=== PATIENT | female | born 1990 | race Caucasian/White ===

== ENCOUNTER → 2016-11-13 08:50 | Outpatient (CLI) | payer MEDICAID ==
[~2016-11-13 08:50] MED LIST: HYDROCODON-ACE1 EAC7 PO; IBUPROFEN600 MG PO; LAMICTAL ODT200 MG PO; MACROBID100 MG PO; PRENATAL COMPLE1 TAB PO; PROTONIX40 MG PO
[2016-11-13 09:50] LABS: APPEARANCE CLOUDY (CLEAR); BACTERIA MODERATE /hpf (NONE SEEN); BILIRUBIN NEGATIVE (NEGATIVE); COLOR YELLOW (YELLOW); GLUCOSE NEGATIVE (NEGATIVE); KETONE NEGATIVE (NEGATIVE); LEUKOCYTE ESTERASE 1+ (NEGATIVE); NITRITE NEGATIVE (NEGATIVE); PROTEIN NEGATIVE (NEGATIVE); RED CELLS - URINE 0-5 /hpf (0-5); UROBILINOGEN NORMAL (NORMAL)
[2016-11-13 09:51] LABS: AMORPHOUS SEDIMENT <1+ /lpf (NONE SEEN); MUCUS <1+ /lpf (NONE SEEN)
--- NOTE | 2016-11-13 10:45 | NUR ---
PT WISHES TO SHOWER. IV [place] COVERED W/GLOVE.PT OOB W/OUT ASSISTANCE. DENIES DIZZINESS. AMBULATES TO SHOWER. PT'S GRANMOTHER TO ASSIST PT W/SHOWERING. EVS TO ROOM AT THIS TIME TO CLEAN AND REMOVE TRASH. BED LINENS CHANGED PER THIS RN. BATHING ITEMS PROVIDED. INFANT LYING QUIETLY IN CRIB AT BEDSIDE. PT DENIES FURTHER NEEDS AT THIS TIME.
[2017-01-24 06:11] VITALS: BMI 24.2
== END | disposition home or self-care (01) ==
LOC: D.LDO 08:50
PROVIDERS: Specialist
DX: Z34.83 Encounter for supervision of other normal pregnancy, third trimester (principal); Z3A.35 35 weeks gestation of pregnancy; N89.8 Other specified noninflammatory disorders of vagina; R10.9 Unspecified abdominal pain

== ENCOUNTER 2016-11-28 10:48 | Emergency (ER) | payer MEDICAID ==
[2016-11-28 15:45] LABS: BASOPHILS 0.1 % (0.0-2.0); EOSINOPHILS 0.1 % (0-7); HEMATOCRIT 34.9 % (36.0-48.0); HEMOGLOBIN 11.2 g/dL (12-16); IMMATURE GRANULOCYTES 0.2 % (0-5); LYMPHOCYTES 7.2 % (15-50); MCH 30.9 pg (26.0-34.0); MCHC 32.1 g/dL (31.0-37.0); MCV 96.4 fL (80.0-100.0); MEAN PLATELET VOLUME 10.6 fL (7.4-10.4); NEUTROPHILS 84.4 % (40-80); RBC 3.62 10x6/uL (4.00-5.40); RDW 14.9 % (11.5-14.5); WBC 12.7 10x3/uL (4.8-10.8)
[2016-11-28 15:46] LABS: PLATELET COUNT 162 10x3/uL (130-400)
[2016-11-28 16:04] LABS: ALBUMIN 2.7 g/dL (3.4-5.0); ALKALINE PHOSPHATASE 154 U/L (46-116); ALT (SGPT) 14 U/L (10-68); BILIRUBIN - TOTAL 0.38 mg/dL (0.2-1.3); CALC OSMOLALITY 272 mosm/kg (275-300); CALCIUM 8.5 mg/dL (8.5-10.1); CHLORIDE - SERUM 104 mmol/L (98-107); CREATININE - SERUM 0.5 mg/dL (0.6-1.3); POTASSIUM - SERUM 3.4 mmol/L (3.5-5.1); PROTEIN - SERUM 5.8 g/dL (6.4-8.2); SODIUM 139 mmol/L (136-145); UREA NITROGEN 4 mg/dL (7-18); eGFR NON AFRICAN AMERICAN > 90 mL/min (90-120)
[2016-11-28 16:10] LABS: GLUCOSE 66 mg/dL (74-106)
[2016-11-28 17:04] LABS: APPEARANCE HAZY (CLEAR); BILIRUBIN NEGATIVE (NEGATIVE); COLOR YELLOW (YELLOW); GLUCOSE NEGATIVE (NEGATIVE); KETONE MODERATE mg/dL (NEGATIVE); LEUKOCYTE ESTERASE 1+ (NEGATIVE); NITRITE NEGATIVE (NEGATIVE); PROTEIN NEGATIVE (NEGATIVE); UROBILINOGEN NORMAL (NORMAL)
[2016-11-28 17:05] LABS: BACTERIA MANY /hpf (NONE SEEN); EPITHELIAL CELLS 0-5 /hpf (0-5); RED CELLS - URINE 0-5 /hpf (0-5); WHITE CELLS - URINE 0-5 /hpf (0-5)
[2017-01-22] MEDS ORDERED: PRENATAL COMPLE1 TAB PO (14:12)
[2017-01-24 06:11] VITALS: BMI 24.2
== END 2016-11-28 18:15 | disposition home or self-care (01) ==
LOC: D.ER 10:48 → D.LDO 10:48 → EDSTATUS 12:00 → D.ER 18:15
PROVIDERS: Physician Assistant
DX: Z34.93 Encounter for supervision of normal pregnancy, unspecified, third trimester (principal); Z3A.37 37 weeks gestation of pregnancy; M54.9 Dorsalgia, unspecified; R50.9 Fever, unspecified; O21.0 Mild hyperemesis gravidarum

== ENCOUNTER 2016-11-29 23:10 | Outpatient (CLI) | payer MEDICAID ==
[2016-11-29 23:34] LABS: APPEARANCE HAZY (CLEAR); BACTERIA FEW /hpf (NONE SEEN); BILIRUBIN NEGATIVE (NEGATIVE); COLOR YELLOW (YELLOW); EPITHELIAL CELLS 0-5 /hpf (0-5); GLUCOSE NEGATIVE (NEGATIVE); KETONE MODERATE mg/dL (NEGATIVE); LEUKOCYTE ESTERASE TRACE (NEGATIVE); NITRITE NEGATIVE (NEGATIVE); PROTEIN NEGATIVE (NEGATIVE); RED CELLS - URINE NONE SEEN /hpf (0-5); SPECIFIC GRAVITY 1.005 (1.005-1.020); UROBILINOGEN NORMAL (NORMAL)
[2016-11-30 00:07] LABS: BASOPHILS 0.1 % (0.0-2.0); EOSINOPHILS 0.1 % (0-7); HEMATOCRIT 34.7 % (36.0-48.0); HEMOGLOBIN 11.3 g/dL (12-16); IMMATURE GRANULOCYTES 0.4 % (0-5); LYMPHOCYTES 6.6 % (15-50); MCH 31.3 pg (26.0-34.0); MCHC 32.6 g/dL (31.0-37.0); MCV 96.1 fL (80.0-100.0); MEAN PLATELET VOLUME 10.8 fL (7.4-10.4); MONOCYTES 9.6 % (2-11); NEUTROPHILS 83.2 % (40-80); PLATELET COUNT 160 10x3/uL (130-400); RBC 3.61 10x6/uL (4.00-5.40); RDW 14.9 % (11.5-14.5)
[2016-11-30 00:16] LABS: CALC OSMOLALITY 269 mosm/kg (275-300); CALCIUM 8.6 mg/dL (8.5-10.1); CARBON DIOXIDE 20.4 mmol/L (21.0-32.0); CHLORIDE - SERUM 104 mmol/L (98-107); CREATININE - SERUM 0.5 mg/dL (0.6-1.3); GLUCOSE 89 mg/dL (74-106); POTASSIUM - SERUM 3.6 mmol/L (3.5-5.1); SODIUM 137 mmol/L (136-145); UREA NITROGEN 5 mg/dL (7-18); eGFR NON AFRICAN AMERICAN > 90 mL/min (90-120)
[2016-11-30 09:47] LABS: APPEARANCE HAZY (CLEAR); BILIRUBIN NEGATIVE (NEGATIVE); COLOR YELLOW (YELLOW); GLUCOSE NEGATIVE (NEGATIVE); KETONE MODERATE mg/dL (NEGATIVE); LEUKOCYTE ESTERASE 1+ (NEGATIVE); NITRITE NEGATIVE (NEGATIVE); PROTEIN NEGATIVE (NEGATIVE); UROBILINOGEN NORMAL (NORMAL)
[2016-11-30 09:49] LABS: RED CELLS - URINE 0-5 /hpf (0-5)
[2016-11-30 09:50] LABS: BACTERIA MANY /hpf (NONE SEEN); EPITHELIAL CELLS 0-5 /hpf (0-5)
[2017-01-22] MEDS ORDERED: PRENATAL COMPLE1 TAB PO (14:12)
[2017-01-24 06:11] VITALS: BMI 24.2
== END 2016-11-30 17:10 ==
LOC: D.LDO 23:10 → D.LD 23:10 → D.LDO 11-30 17:10
PROVIDERS: Obstetrics & Gynecology
DX: Z34.83 Encounter for supervision of other normal pregnancy, third trimester (principal); Z3A.37 37 weeks gestation of pregnancy; R11.2 Nausea with vomiting, unspecified; R19.7 Diarrhea, unspecified

== ENCOUNTER → 2016-12-02 10:45 | Outpatient (CLI) | payer MEDICAID ==
[2016-12-02 12:25] LABS: BASOPHILS 0.2 % (0.0-2.0); EOSINOPHILS 0.7 % (0-7); HEMATOCRIT 33.6 % (36.0-48.0); HEMOGLOBIN 10.9 g/dL (12-16); IMMATURE GRANULOCYTES 0.4 % (0-5); LYMPHOCYTES 20.8 % (15-50); MCH 30.4 pg (26.0-34.0); MCHC 32.4 g/dL (31.0-37.0); MCV 93.9 fL (80.0-100.0); MEAN PLATELET VOLUME 10.5 fL (7.4-10.4); MONOCYTES 8.8 % (2-11); NEUTROPHILS 69.1 % (40-80); PLATELET COUNT 166 10x3/uL (130-400); RBC 3.58 10x6/uL (4.00-5.40); RDW 14.6 % (11.5-14.5); WBC 5.7 10x3/uL (4.8-10.8)
[2016-12-02 12:44] LABS: ALBUMIN 2.2 g/dL (3.4-5.0); ALKALINE PHOSPHATASE 152 U/L (46-116); ALT (SGPT) 20 U/L (10-68); AMYLASE - SERUM 23 U/L (25-115); BILIRUBIN - TOTAL 0.21 mg/dL (0.2-1.3); CALC OSMOLALITY 272 mosm/kg (275-300); CALCIUM 8.6 mg/dL (8.5-10.1); CARBON DIOXIDE 23.5 mmol/L (21.0-32.0); CHLORIDE - SERUM 106 mmol/L (98-107); CREATININE - SERUM 0.5 mg/dL (0.6-1.3); LIPASE 87 U/L (73-393); POTASSIUM - SERUM 3.9 mmol/L (3.5-5.1); SODIUM 139 mmol/L (136-145); UREA NITROGEN 5 mg/dL (7-18); eGFR NON AFRICAN AMERICAN > 90 mL/min (90-120)
[2016-12-02 12:45] LABS: GLUCOSE 69 mg/dL (74-106)
[2016-12-02 13:35] LABS: APPEARANCE HAZY (CLEAR); BACTERIA MANY /hpf (NONE SEEN); BILIRUBIN NEGATIVE (NEGATIVE); COLOR STRAW (YELLOW); EPITHELIAL CELLS OCC /hpf (0-5); GLUCOSE NEGATIVE (NEGATIVE); KETONE NEGATIVE (NEGATIVE); LEUKOCYTE ESTERASE 1+ (NEGATIVE); NITRITE NEGATIVE (NEGATIVE); PROTEIN NEGATIVE (NEGATIVE); RED CELLS - URINE OCC /hpf (0-5); SPECIFIC GRAVITY 1.015 (1.005-1.020); UROBILINOGEN NORMAL (NORMAL)
[2016-12-02 13:36] LABS: MUCUS <1+ /lpf (NONE SEEN)
[2017-01-24 06:11] VITALS: BMI 24.2
== END | disposition home or self-care (01) ==
LOC: D.LDO 10:45
PROVIDERS: Obstetrics & Gynecology
DX: Z34.83 Encounter for supervision of other normal pregnancy, third trimester (principal); Z3A.38 38 weeks gestation of pregnancy

== ENCOUNTER 2016-12-09 04:55 | Inpatient (IN) | payer MEDICAID ==
[~2016-12-09] VITALS: Ht 162.6 cm; Wt 75.9 kg
[2016-12-09] MEDS ORDERED: LAMICTAL ODT200 MG PO (05:20)
[2016-12-09] MEDS ORDERED: PROTONIX40 MG PO (05:21)
[2016-12-09] MEDS ORDERED: MACROBID100 MG PO (05:21)
[2016-12-09 05:36] VITALS: BP 113/72; Ht 162.6 cm; Wt 75.9 kg
[2016-12-09 06:58] LABS: HEMOGLOBIN 11.7 g/dL (12-16); MCH 30.5 pg (26.0-34.0); MCHC 32.5 g/dL (31.0-37.0); MCV 93.8 fL (80.0-100.0); RBC 3.84 10x6/uL (4.00-5.40); RDW 14.5 % (11.5-14.5); WBC 7.4 10x3/uL (4.8-10.8)
[2016-12-09 07:32] LABS: APPEARANCE HAZY (CLEAR); BACTERIA MODERATE /hpf (NONE SEEN); BILIRUBIN NEGATIVE (NEGATIVE); COLOR YELLOW (YELLOW); EPITHELIAL CELLS 0-5 /hpf (0-5); GLUCOSE NEGATIVE (NEGATIVE); KETONE NEGATIVE (NEGATIVE); LEUKOCYTE ESTERASE 1+ (NEGATIVE); MUCUS <1+ /lpf (NONE SEEN); NITRITE NEGATIVE (NEGATIVE); PROTEIN NEGATIVE (NEGATIVE); RED CELLS - URINE NONE SEEN /hpf (0-5); UROBILINOGEN NORMAL (NORMAL)
[2016-12-09 20:00] VITALS: BP 115/67
--- NOTE | 2016-12-09 20:00 | NUR ---
RCVD PT FROM AM SHIFT RN. PT SITTING UP IN BED WITH UP IN ARMS. FAMILY IN ROOM VISITING. PT RATES PAIN 8/10 IN PERINEUM AT THIS TIME. NORCO 5 X1 TAB AND MOTRIN 600 MG X1 TAB GIVEN PER PT REQUEST. BREATH SOUNDS CLEAR AND UNLABORED X2. BOWEL SOUNDS ACTIVE X4. PIV TO RT WRIST SL C/D/I. FUNDUS FIRM U/1. SMALL LOCHIA RUBRA NOTED ON PERIPAD. PT REPORTS REGULAR VOIDING. PPP AND = BILATERALLY. S1, S2. PT DENIES FURTHER NEEDS AT THIS TIME. WILL CONTINUE TO MONITOR. BED LOW, WHEELS LOCKED, SIDE RAILS UP X2, CL IN REACH.
--- NOTE | 2016-12-09 20:39 | NUR ---
PAIN REASSESSMENT COMPLETE. PT RATES PAIN 3/10 CURRENTLY AND REPORTS THIS TOLERABLE. PT SITTING UP IN BED WITH UP IN ARMS. FOB AT BEDSIDE. PT DENIES FURTHER NEEDS AT THIS TIME. WILL CONTINUE POC.
--- NOTE | 2016-12-09 21:52 | NUR ---
PT SITTING UP IN BED WITH UP IN ARMS ATTEMPTING TO BREASTFEED AT THIS TIME. FOB REMAINS AT BEDSIDE. PT DENIES NEEDS OR PAIN AT THIS TIME. WILL CONTINUE TO MONITOR.
--- NOTE | 2016-12-09 22:15 | NUR ---
PT LYING IN BED. FOB AT BEDSIDE. PT STATES "THE PAIN IS CREEPING UP A LITTLE BIT MORE, BUT IT'S NOT INTOLERABLE YET." PT DENIES FURTHER NEEDS.
--- NOTE | 2016-12-10 | NUR ---
PT LOVINGLY HOLDING BABY, DENIES NEEDS OR PAIN, FOB ON COUCH AT THIS TIME
--- NOTE | 2016-12-10 01:27 | NUR ---
PT PUBLIC INFORMATION OFFICER LIGHT, PT C/O CRAMPING, ADM MOTRIN PO PER MD ORDERS, SEE EMAR, REQUESTED AND SERVED FRESH H20, PT READY TO GET SOME SLEEP, BABY TO NSY VIA OPEN CRIB CART PER THIS RN, PT DENIES FURTHER NEEDS, FOB AT BEDSIDE
--- NOTE | 2016-12-10 01:57 | NUR ---
BABY TO ROOM VIA OPEN CRIB CART PER APRYL THOMPSON, RN
--- NOTE | 2016-12-10 02:18 | NUR ---
PT HOLDING BABY, DENIES NEEDS OR PAIN AT THIS TIME, FOB ON COUCH
--- NOTE | 2016-12-10 03:21 | NUR ---
PT AWAKE, BABY IN OPEN CRIB CART AT BEDSIDE, BABY TO NSY VIA OPEN CRIB CART PER THIS RN, PT DENIES NEEDS OR PAIN, FOB ASLEEP ON COUCH
--- NOTE | 2016-12-10 05:05 | NUR ---
INFANT TRANSPORTED VIA OPEN CRIB TO ROOM PER THIS RN. ID BANDS VERIFIED PER PROTOCOL. INFANT PLACED IN MOTHER'S ARMS FOR FEEDING. PT DENIES NEEDS AT THIS TIME.
--- NOTE | 2016-12-10 05:51 | NUR ---
PT RINGS CL. THIS RN TO BEDSIDE. PT REQUESTS & RECEIVES NORCO 5/325 X1 TAB FOR PAIN RATED 7/10 IN PERINEUM AND CRAMPING IN ABD. EDU PT ON AND UTERUS AMADO. PT VERBALIZES UNDERSTANDING. PT HAS UP IN ARMS AT THIS TIME. FOB REMAINS ON BEDSIDE COUCH. PT DENIES FURTHER NEEDS. WILL CONTINUE TO MONITOR.
--- NOTE | 2016-12-10 06:43 | NUR ---
PT BABY, PT REPORTS PAIN IS "BETTER", DENIES NEEDS, FOB ASLEEP ON COUCH
--- NOTE | 2016-12-10 07:00 | NUR ---
SHIFT REPORT TO BARRY SCHMITZ RN
[2016-12-10 07:21] LABS: RAPID PLASMA REAGIN Non Reactive (Non Reactive)
[2016-12-10 08:15] VITALS: BP 104/63
--- NOTE | 2016-12-10 08:15 | NUR ---
PATIENT SITTING UP IN HER BED, HER . FRESH GOWN PROVIDED. PATIENT WANTS TO GO FOR A WALK WITHIN THE HOSPITAL, TO NURSERY OR DOWN TO THE GIFT SHOP. INFORMED THAT SHE CAN WEAR HER OWN CLOTHES. SHE DENIES OTHER NEEDS AT THIS TIME. FOB AND MOTHER AT THE BEDSIDE.
[2016-12-10 08:40] LABS: BASOPHILS 0.1 % (0.0-2.0); EOSINOPHILS 0.7 % (0-7); HEMATOCRIT 35.2 % (36.0-48.0); HEMOGLOBIN 11.3 g/dL (12-16); IMMATURE GRANULOCYTES 0.3 % (0-5); LYMPHOCYTES 20.9 % (15-50); MCH 30.4 pg (26.0-34.0); MCHC 32.1 g/dL (31.0-37.0); MCV 94.6 fL (80.0-100.0); MEAN PLATELET VOLUME 10.7 fL (7.4-10.4); MONOCYTES 7.4 % (2-11); NEUTROPHILS 70.6 % (40-80); RBC 3.72 10x6/uL (4.00-5.40); RDW 14.5 % (11.5-14.5)
[2016-12-10 08:53] LABS: PLATELET COUNT 203 10x3/uL (130-400); WBC 10.5 10x3/uL (4.8-10.8)
--- NOTE | 2016-12-10 09:00 | NUR ---
Kip Damico 12/[birth year]/16 LE@ 8:45 S: Patient states this is her second baby; she didn't breastfeed her daughter long because she wasn't producing enough. O: Patient sitting up in bed holding , lights dim, television on. FOB in shower. Asked how is going, how can I help? Patient states infant favors the left breast over the right, asked if her nipples are sore, states yes, since she started using the nipple shield. Patient right nipple and areola are red, extremely sensitive to touch, no scabbing. Possible the nipple shield isn't being used correctly and infant doesn't have a good latch. Showed how to properly use the nipple shield, verified patient can apply correctly. Patient does have flat nipples, it is possible over time she might not need to use it, but do so for now. Many of moms, use a nipple shield, there is nothing wrong with having to do so. Making sure the shield is used correctly as well as infant latch, will help with her sore nipples. Provided handout and explain on sore nipples. When feeding turn him tummy to tummy, nose opposite of nipple, and gently support his head, infant is able to self-latch. It's important to feed infant on demand. Provided and explain handouts on feeding cues, benefits on skin to skin, and helpful tips to waking a sleeping baby. in the beginning takes time and patience bother mother and are learning together. During the couple of weeks it's very important to latch infant on demand to help with establishing her milk supply. Supply and demand, what baby takes out her body will make more of. During the first several days, her body produces colostrum, her colostrum increase by volume daily to meet needs, explained breastmilk composition. Just take things day by day with a new infant. You both are learning each other and things take time, enjoy every moment and ask for help as needed. Client states she doesn't get WIC. Asked if any needs, questions or concerns, declined at this time, thanked CLC . A: Patient concern about use of nipple shield, due to sore nipples. P: Verify nipple shield is apply correctly and infant is latch properly, ask for help if needed. Continue to support exclusively during hospital visit. Darius Ramos, CLC
--- NOTE | 2016-12-10 10:16 | NUR ---
ASCENCION SITTING UP IN HER BED, SEMI HI FOWLERS. SHE IS HOLDING HER AND SMILES DOWN AT HIM OFTEN. VSS. IV SL REMOVED FROM THE RIGHT WRIST PER REQUEST DUE TO IRRITATION. LAB WORK NOTED. FOB SITTING UP ON THE COUCH AT BEDSIDE. ASCENCION STATES THAT HER BLEEDING IS MUCH LIKE THAT IF A PERIOD. SHE DENIES PASSING ANY CLOTS. CONFIRMS THAT SHE IS HAVING CRAMPS BUT DENIES NEEDS FOR MEDICATIONS AT THIS TIME. HER CALL LIGHT IS WITHIN HER REACH. ENCOURAGED TO CALL WITH ANY NEEDS, QUESTIONS. SHE VOICES UNDERSTANDING.
--- NOTE | 2016-12-10 10:46 | NUR ---
VINCE PROVIDED FOR HER TO TAKE A SHOWER.
--- NOTE | 2016-12-10 12:10 | NUR ---
PATIENT WITHOUT STATED NEEDS.
--- NOTE | 2016-12-10 13:30 | NUR ---
PATIENT GIVEN A CLEAN GOWN. SHE INTENDS TO AMBULATE OUT INTO THE HALLWAY WITH HER MOTHER AND SPOUSE. DIRECTIONS TO THE VENDING MACHINE GIVEN.
--- NOTE | 2016-12-10 14:38 | NUR ---
PATIENT IS RESTING IN HER BED, HOB UP 45 DEGREES. SHE DENIES NEEDS AT THIS TIME. SHE HAS HER CELL PHONE, TV IS ON, FOB AND FEMALE VISITOR ARE ON THE COUCH. LIGHTS ARE LOW AND THE PATIENT IS SMILING. WILL CONTINUE TO MONITOR.
--- NOTE | 2016-12-10 18:22 | NUR ---
PERICARE SUPPLIES PROVIDED AND EXPLAINED. MONITORING.
[2016-12-10 19:15] VITALS: BP 111/76
--- NOTE | 2016-12-10 19:15 | NUR ---
PT HOLDING BABY, REPORTS SHE JUST FINISHED , ASSESSMENT PER FLOW SHEET, VS OBTAINED, FF, ML, U/1, PT REPORTS FLATUS, NO BM AND VOIDING BY SELF WITH NO DIFFICULTY, REPORTS LITE BLEEDING WITH A FEW CLOTS EARLIER THIS MORNING, PT C/O CRAMPING, OFFERED MOTRIN OR NORCO, PT REQUESTS NORCO AT THIS TIME
--- NOTE | 2016-12-10 19:32 | NUR ---
ADM NORCO PO PER MD ORDERS, PT REQUESTED AND PROVIDED NIPPLE SHIELD, GOWN ALSO PROVIDED, PT DENIES FURTHER NEEDS AT THIS TIME
--- NOTE | 2016-12-10 20:27 | NUR ---
PT VISITING WITH FAMILY AND FRIENDS, PT DENIES NEEDS OR PAIN, STATES "I FEEL MUCH BETTER"
--- NOTE | 2016-12-10 21:27 | NUR ---
PT HOLDING BABY, PT HAS SMALL EDEMATOUS PLACE WHERE SALINE LOCK WAS, APPLIED SMALL HEAT PACK, PT DENIES FURTHER NEEDS OR PAIN, FOB AT BEDSIDE
--- NOTE | 2016-12-10 22:33 | NUR ---
PT CHANGING BABIES DIAPER, DENIES NEEDS OR PAIN, FOB AT BEDSIDE
--- NOTE | 2016-12-11 00:32 | NUR ---
PT AWAKE, READY TO GET SOME REST, DENIES NEEDS OR PAIN, BABY TO NSY VIA OPEN CRIB CART PER THIS RN, FOB ASLEEP ON COUCH
--- NOTE | 2016-12-11 02:10 | NUR ---
PT RESTING WITH EYES CLOSED, RESP QUIET, NO DISTRESS NOTED, LEFT UNDISTURBED AT THIS TIME, FOB ASLEEP ON COUCH
--- NOTE | 2016-12-11 04:33 | NUR ---
PT RESTING WITH EYES CLOSED, RESP QUIET, NO DISTRESS NOTED, LEFT UNDISTURBED AT THIS TIME, FOB ASLEEP ON COUCH
--- NOTE | 2016-12-11 06:09 | NUR ---
PT AWAKE, BABY IN OPEN CRIB CART AT BEDSIDE, PT DENIES NEEDS OR PAIN AT THIS TIME
--- NOTE | 2016-12-11 07:00 | NUR ---
SHIFT REPORT TO DOV JOHNSTON RN
[2016-12-11 07:45] VITALS: BP 96/62
--- NOTE | 2016-12-11 07:45 | NUR ---
PT IS RESTING IN BED. GEN- AWAKE AND ALERT. LUNGS- CLEAR. HEART- RRR. ABD- SOFT WITH TENDERNESS. BS+. EXT- NO EDEMA NOTED. PT STATES PAIN IS A 4. PAIN MED GIVEN. PT HAS BEEN VOIDING WITHOUT DIFFICULTY. PT HAS BEEN DOING TIKI CARE. BED IS LOW. CALL LIGHT IN REACH AND SIDE RAILS UP X 2.
--- NOTE | 2016-12-11 08:25 | NUR ---
Visited with patient - discussed discharge and what to expect - pt happy with care. Denies needs at this time.
[2016-12-11] MEDS ORDERED: HYDROCODON-ACE1 EAC7 PO (08:29)
[2016-12-11] MEDS ORDERED: IBUPROFEN600 MG PO (08:29)
--- NOTE | 2016-12-11 08:34 | NUR ---
Kip Damico 12/11/16 S: Patient states things have gotten so much better since yesterday, feels good. O: Patient sitting up in bed, states she is going to take a shower in a few minutes, in nursery. Asked how did go yesterday? Patient states now that she is using her nipple shield correctly, baby is latching better, things are going so much better. Her one nipple is still sensitive to touch but knows it will go away, now that baby is latching correctly. does take time, adjusting position and verify latch is correct for every feeding will help with healing sore nipples. Encouraged to latch infant on breast that is least sore, infant first initial latch is more aggressive. Praised for , is a great moore between mother and , give it time, ask for help as needed, it's ok to feel overwhelmed or even like you don't know what you are doing at times; it's a normal feeling. I will follow up following discharge. Explain engorgement and how to prevent, feed infant on demand to help establish milk supply, and rest as needed. Asked if any questions or concerns, declined at this time. A: Patient appears in good spirit, happy. Feels like has improved since changing infant position and knowing how to use nipple shield correctly. P: Continue to support exclusively . Darius Ramos, CLC
--- NOTE | 2016-12-11 08:45 | NUR ---
PT IS UP IN SHOWER. STAES HER PAIN IS GOOD NOW. OFFERS NO COMPLIANTS.
--- NOTE | 2016-12-11 09:59 | NUR ---
PT IS SITTING UP IN BED. OFFERS NO COMPLAINTS. REQUESTED SOME ICE. GIVEN. BED IS LOW, SIDE RAILS UP X 2 AND CALL LIGHT IN REACH.
--- NOTE | 2016-12-11 11:22 | NUR ---
PT IS SITTING UP IN BED HOLDING BABY. SHE REQUEST TO HAVE MORE DERMAPLAST, EPIFOAM AND TUCKS TO TAKE HOME. GIVEN. HER MOTHER IS AT BEDSIDE. SHE STATES HER PAIN IS UNDER CONTROL.
--- NOTE | 2016-12-11 13:43 | NUR ---
DISCHARGE INSTRUCTIONS DISCUSSED WITH PT. SHE UNDERSTANDS INSTRUCTIONS. HANDOUTS, FU APPT AND PRESCRIPTIONS GIVEN. PT WILL BE TAKEN TO FRONT DOOR BY WHEELCHAIR.
[2017-01-22] MEDS ORDERED: PRENATAL COMPLE1 TAB PO (14:12)
== END 2016-12-11 14:33 | disposition home or self-care (01) | DRG 775 ==
LOC: D.LD 04:55
PROVIDERS: ADMIT Obstetrics & Gynecology
PROC: 10D07Z6 Extraction of Products of Conception, Vacuum, Via Natural or Artificial Opening (ICD-10-PCS; principal; 2016-12-09)
PROC: 10907ZC Drainage of Amniotic Fluid, Therapeutic from Products of Conception, Via Natural or Artificial Opening (ICD-10-PCS; principal; 2016-12-09)
PROC: 3E033VJ Introduction of Other Hormone into Peripheral Vein, Percutaneous Approach (ICD-10-PCS; principal; 2016-12-09)
DX: O76 Abnormality in fetal heart rate and rhythm complicating labor and delivery (principal); O99.824 Streptococcus B carrier state complicating childbirth; O69.1XX0 Labor and delivery complicated by cord around neck, with compression, not applicable or unspecified; O66.0 Obstructed labor due to shoulder dystocia; O99.344 Other mental disorders complicating childbirth; F32.9 Major depressive disorder, single episode, unspecified; Z3A.39 39 weeks gestation of pregnancy; Z37.0 Single live birth

== ENCOUNTER 2017-01-24 05:30 | Day surgery (SDC) | payer MEDICAID ==
[2017-01-22 14:38] LABS: BASOPHILS 0.4 % (0-2); EOSINOPHILS 2.6 % (0-7); HEMATOCRIT 39.1 % (36.0-48.0); HEMOGLOBIN 12.8 g/dL (12-16); IMMATURE GRANULOCYTES 0.1 % (0-5); LYMPHOCYTES 30.6 % (15-50); MCH 30.5 pg (26.0-34.0); MCHC 32.7 g/dL (31.0-37.0); MCV 93.1 fL (80.0-100.0); MEAN PLATELET VOLUME 9.7 fL (7.4-10.4); NEUTROPHILS 58.3 % (40-80); RDW 13.6 % (11.5-14.5); WBC 7.4 10x3/uL (4.8-10.8)
[2017-01-22 14:53] LABS: PLATELET COUNT 304 10x3/uL (130-400)
[~2017-01-24] VITALS: Ht 162.6 cm; Wt 64.0 kg
--- NOTE | ~2017-01-24 | OP ---
PATIENT NAME: ESTHER BRANTLEY MEDICAL RECORD: [id number] :89 LOCATION:[facility] ADMISSION DATE: SURGEON: INOCENCIA CHATTERJEE MD DATE OF OPERATION: 01/22/2017 PREOPERATIVE DIAGNOSIS: Multiparity, the patient desires permanent sterility. POSTOPERATIVE DIAGNOSIS: Multiparity, the patient desires permanent sterility. PROCEDURE: Laparoscopic tubal ligation via bipolar cautery. SURGEON: Inocencia Chatterjee MD ESTIMATED BLOOD LOSS: Minimal. ANESTHESIA: General. SPECIMENS: None. FINDINGS: Grossly normal-appearing uterus, ovaries and bilateral fallopian tubes. PROCEDURE IN DETAIL: The patient was taken to the operating room where general anesthesia was achieved without difficulty. The patient was then prepped and draped in normal sterile fashion in the dorsal lithotomy position. The bladder was drained of approximately 50 cc of straw colored urine. A sponge stick was placed into the vagina for uterine elevation. At this point, attention was turned to the umbilicus where a 5-mm incision was made below the umbilicus and a 5-mm bladeless trocar was used to enter the intraperitoneal space under direct visualization of the laparoscope. The introducer was then removed. Intraperitoneal placement was confirmed by the laparoscope. The patient was then insufflated and opening pressure was found to be consistent with intraperitoneal placement. After insufflation, attention was then turned to the patient's abdomen where another 5-mm incision was made approximately 3-4 cm above the pubic symphysis. A second bladeless trocar was then used to enter the intraperitoneal space under direct visualization of the laparoscope. Attention was then turned to the uterus where a 5+ cm area of the mid portion of the tube was completely desiccated and fulgurated using the bipolar cautery. This was done bilaterally. No bleeding was noted. No damage incidentally to any surrounding organs was noted at that time. Following the bipolar cautery of the tubes and good hemostasis noted. The patient was desufflated. The trocars were removed and the skin was repaired in an interrupted fashion with 3-0 Vicryl. The patient tolerated the procedure well, transferred to postanesthesia recovery stable without incident. TRANSINT:[id number] Voice Confirmation ID: [id number] DOCUMENT ID: [id number] OPERATIVE REPORT [id number] ESTHER BRANTLEY INOCENCIA CHATTERJEE MD CC: [id number] DICTATION DATE: 02/16/17829 BINDERY ASSISTANT: 02/16/17 1731 [facility] 01/24/17 [id number] [place] [address]
[2017-01-24 06:11] VITALS: BP 103/63; Ht 162.6 cm; Wt 64.0 kg
[2017-01-24 06:17] LABS: HCG URINE NEGATIVE (NEGATIVE)
== END 2017-01-24 09:50 | disposition home or self-care (01) ==
LOC: D.OPS 05:30
PROVIDERS: Obstetrics & Gynecology
DX: Z30.2 Encounter for sterilization (principal); Z01.812 Encounter for preprocedural laboratory examination

== ENCOUNTER → 2018-12-11 08:27 | Day surgery (SDC) | payer MEDICAID ==
[2018-12-08 11:46] LABS: BASOPHILS 0.2 % (0-2); EOSINOPHILS 0.8 % (0-7); HEMATOCRIT 35.4 % (36.0-48.0); HEMOGLOBIN 11.8 g/dL (12-16); IMMATURE GRANULOCYTES 0.2 % (0-5); LYMPHOCYTES 23.4 % (15-50); MCHC 33.3 g/dL (31.0-37.0); MCV 92.9 fL (80.0-100.0); MEAN PLATELET VOLUME 9.3 fL (7.4-10.4); MONOCYTES 9.2 % (2-11); NEUTROPHILS 66.2 % (40-80); PLATELET COUNT 326 10x3/uL (130-400); RBC 3.81 10x6/uL (4.00-5.40); RDW 12.6 % (11.5-14.5); WBC 8.4 10x3/uL (4.8-10.8)
[~2018-12-11] VITALS: Ht 162.6 cm; Wt 51.7 kg
[2018-12-11 07:53] VITALS: BP 100/56; Ht 162.6 cm; Wt 51.7 kg
[2018-12-11 08:13] LABS: HCG URINE NEGATIVE (NEGATIVE)
[~2018-12-11 08:27] MED LIST changes: +ADDERALL 20 MG20 M1 PO; +BUPROPION XL300 MG PO; +BUSPAR 15 MG TA15 MG PO; +LAMICTAL XR200 MG PO; +[UNRECOGNIZED DRUG - OTHER] PO
--- NOTE | 2018-12-28 09:28 | OP ---
PATIENT NAME: ESTHER BRANTLEY MEDICAL RECORD: [id number] :89 LOCATION:[facility] ADMISSION DATE: SURGEON: INOCENCIA CHATTERJEE MD DATE OF OPERATION: 12/11/2018 PREOPERATIVE DIAGNOSES: 1. Redundant mucosa/skin and posterior fourchette. 2. Perineal pain. 2. Dyspareunia. POSTOPERATIVE DIAGNOSES: 1. Redundant mucosa/skin and posterior fourchette. 2. Perineal pain. 2. Dyspareunia. PROCEDURE: Perineorrhaphy. SURGEON: Inocencia Chatterjee MD ESTIMATED BLOOD LOSS: Minimal. INTRAVENOUS FLUIDS: Per anesthesia record. ANESTHESIA: General via LMA. COMPLICATIONS: None apparent. SPECIMENS: Skin/vaginal mucosa. PROCEDURE: The patient was taken to the operating room where general anesthesia was achieved without difficulty. The patient was then prepped and draped in normal sterile fashion in the dorsal lithotomy position. The posterior fourchette/perineum and vagina was then thoroughly prepped and draped and the previous perineal laceration was identified. An approximately 2 cm incision was made at the epithelial mucosal junction at the posterior fourchette, approximately 1.5 cm triangular portion of vaginal mucosa superiorly and perineal skin inferiorly was then excised using the scalpel and scar tissue from previous perineal repair was excised using the Metzenbaum scissors. Healthy new skin edges were then approximated in the horizontal plane to the level of the mucosal junction using 3-0 Vicryl sutures. The mucosal epithelial junction was then repaired in an interrupted fashion using 3-0 Vicryl sutures in a horizontal fashion at the superior aspect of the surgical correction. Good hemostasis was noted and the peritoneum was well approximated. Care was taken not to anchor the vaginal mucosa to the underlying perineal body. The patient tolerated the procedure well and was transferred to postanesthesia recovery stable without incident. TRANSINT:[id number] Voice Confirmation ID: [id number] DOCUMENT ID: [id number] OPERATIVE REPORT [id number] BRANTLEYESTHER INOCENCIA CHATTERJEE MD at 0928 CC: [id number] DICTATION DATE: 12/26/18 0635 DRILLING SUPERINTENDENT: 12/26/18 1058 [facility] 12/11/18 [place] [address]
== END | disposition home or self-care (01) ==
LOC: D.OPS 08:27 → D.PAN 08:45
PROVIDERS: ATTEND Obstetrics & Gynecology
DX: L98.7 Excessive and redundant skin and subcutaneous tissue (principal); N94.10 Unspecified dyspareunia; R10.2 Pelvic and perineal pain